=== PATIENT | male | born 1960 | race Caucasian/White ===

== ENCOUNTER 2021-02-22 12:52 | Outpatient (CLI) | payer OTHER, SELFPAY | END 2021-02-22 12:53 | disposition home or self-care (01) | PROVIDERS: PCP Family Medicine; Visit Provider Specialist | DX: C43.61 Malignant melanoma of right upper limb, including shoulder (principal) | CPT/HCPCS: 88305; 88342 ==

== ENCOUNTER 2021-03-26 11:42 | Outpatient (CLI) | payer OTHER, SELFPAY | END 2021-03-26 11:43 | disposition home or self-care (01) | PROVIDERS: PCP Family Medicine; Visit Provider Specialist | DX: C44.619 Basal cell carcinoma of skin of left upper limb, including shoulder (principal) | CPT/HCPCS: 88305 ==

== ENCOUNTER 2021-05-07 11:51 | Outpatient (CLI) | payer OTHER, SELFPAY | END 2021-05-07 11:52 | disposition home or self-care (01) | LOC: CHSLAB 11:55 | PROVIDERS: PCP Family Medicine; Visit Provider Specialist | DX: C44.519 Basal cell carcinoma of skin of other part of trunk (principal) | CPT/HCPCS: 88305 ==

== ENCOUNTER 2021-07-09 12:14 | Outpatient (CLI) | payer OTHER, SELFPAY | END 2021-07-09 12:15 | disposition home or self-care (01) | LOC: CHSOUTPT 12:22 | PROVIDERS: PCP Family Medicine; Visit Provider Specialist | DX: C44.612 Basal cell carcinoma of skin of right upper limb, including shoulder (principal); C44.519 Basal cell carcinoma of skin of other part of trunk | CPT/HCPCS: 88305 ==

== ENCOUNTER 2022-09-09 14:57 | Outpatient (CLI) | payer OTHER, SELFPAY | END 2022-09-09 14:58 | disposition home or self-care (01) | LOC: CHSLAB 15:00 | PROVIDERS: PCP Family Medicine; Visit Provider Specialist | DX: C44.219 Basal cell carcinoma of skin of left ear and external auricular canal (principal) | CPT/HCPCS: 88305 ==

== ENCOUNTER 2024-05-24 14:59 | Outpatient (CLI) | payer MEDICARE, OTHER, SELFPAY | END 2024-05-24 15:00 | disposition home or self-care (01) | LOC: CHSLAB 15:05 | PROVIDERS: PCP Specialist; Visit Provider Specialist | DX: C44.519 Basal cell carcinoma of skin of other part of trunk (principal); C44.619 Basal cell carcinoma of skin of left upper limb, including shoulder | CPT/HCPCS: 88305 ==